=== PATIENT | female | born 1965 | race Two or more races ===

== ENCOUNTER 2019-06-27 07:46 | Emergency (ER) | payer SELFPAY ==
[2019-06-27 07:53] VITALS: BMI 31.9
[2019-06-27] MEDS ORDERED: MECLIZINE HCL 25 MG TABLET (FP) PO ONE (08:21)
[2019-06-27] MEDS ORDERED: MECLIZINE HCL 25 MG TABLET (FP) ONE (08:47)
[2019-06-27 09:08] LABS: URINE APPEARANCE CLEAR; URINE BILIRUBIN NEGATIVE (NEGATIVE); URINE COLOR YELLOW; URINE GLUCOSE (UA) NEGATIVE (NEGATIVE); URINE KETONE NEGATIVE (NEGATIVE); URINE LEUK ESTERASE NEGATIVE (NEGATIVE); URINE NITRITE NEGATIVE (NEGATIVE); URINE PROTEIN NEGATIVE (NEGATIVE); URINE UROBILINOGEN 0.2 mg/dL (0.2-1.0)
[2019-06-27 09:10] LABS: BASO % 0.8 % (0-2.0); EOS % 2.9 % (0-4.5); HEMOGLOBIN 14.6 GM/dL (10.7-15.3); LYMPH % 32.1 % (8-40); MCH 30.4 pg (25.7-33.7); MCHC 33.2 g/dl (32.0-36.0); MEAN CELL VOLUME 91.4 fl (80-96); MEAN PLT VOLUME 8.7 fl (7.5-11.1); MONO % 5.6 % (3.8-10.2); NEUT % 58.6 % (42.8-82.8); PLATELET COUNT 175 K/MM3 (134-434); RBC 4.82 M/mm3 (3.60-5.2); WHITE BLOOD COUNT 6.7 K/mm3 (4.0-10.0)
[2019-06-27 09:44] LABS: ALBUMIN 4.1 g/dl (3.4-5.0); ALK PHOS 97 U/L (45-117); ANION GAP 6 MMOL/L (8-16); BILIRUBIN,TOTAL 0.3 mg/dL (0.2-1); BLOOD UREA NITROGEN 10.6 mg/dL (7-18); CALCIUM 8.9 mg/dL (8.5-10.1); CHLORIDE 110 mmol/L (98-107); CO2 25 mmol/L (21-32); CREATININE 0.7 mg/dL (0.55-1.3); GLUCOSE,RANDOM 112 mg/dL (74-106); POTASSIUM 4.1 mmol/L (3.5-5.1); SGOT/AST 67 U/L (15-37); SGPT/ALT 121 U/L (13-61); SODIUM 141 mmol/L (136-145); TOT PROT 8.1 g/dl (6.4-8.2)
--- NOTE | 2019-06-27 09:53 | PDOC ---
History of Present Illness - General Chief Complaint: Lightheaded Stated Complaint: DIZZINESS Time Seen by Provider: 06/27/19 08:13 History Source: Patient Exam Limitations: No Limitations - History of Present Illness Initial Comments: 06/27/19 09:48 54-year-old female presents to ED with dizziness upon awakening this morning. Patient states felt as if the room was spinning without headache, visual changes , chest pain, shortness of breath, fever or chills. Patient states has not experienced this in the past and was brought in by her daughter for evaluation. Patient states symptoms are minimal while resting but when she goes to get up , she feels as if she has to hold onto something. Presenting Symptoms: Dizziness Timing/Duration: reports: intermittent Severity/Quality: reports: mild, moderate Associated Symptoms: Yes: Dizziness Past History - Travel Traveled outside of the country in the last 30 days: No Close contact w/someone who was outside of country & ill: No - Past Medical History Allergies/Adverse Reactions: Allergies Allergy/AdvReac Type Severity Reaction Status Date / Time No Known Allergies Allergy Verified 06/27/19 07:53 Home Medications: Ambulatory Orders Meclizine HCl [Antivert -] 25 mg PO TID PRN #21 tablet 06/27/19 COPD: No Disorders: No Kidney Stones: No - Surgical History Gastric Stapling: No - Immunization History Immunization Up to Date: No - Psycho Social/Smoking Cessation Hx Smoking History: Never smoked Have you smoked in the past 12 months: No Information on smoking cessation initiated: No Hx Alcohol Use: No Drug/Substance Use Hx: No Patient Lives Alone: No Lives with/in: spouse/SO Review of Systems - Review of Systems Able to Perform ROS?: Yes Constitutional: No: Symptoms Reported Respiratory: No: Symptoms reported Cardiac (ROS): Yes: Lightheadedness ABD/GI: No: Symptoms Reported Musculoskeletal: No: Symptoms Reported Integumentary: No: Symptoms Reported Neurological: Yes: Dizziness *Physical Exam - Vital Signs Last Vital Signs Temp Pulse Resp BP Pulse Ox 98.3 F 89 16 130/56 L 99 06/27/19 07:49 06/27/19 07:49 06/27/19 07:49 06/27/19 07:49 06/27/19 07:49 - Physical Exam General Appearance: Yes: Nourished, Appropriately Dressed. No: Apparent Distress HEENT: positive: EOMI, FINESSE. negative: Pale Conjunctivae Neck: positive: Normal Thyroid, Supple Respiratory/Chest: positive: Lungs Clear, Normal Breath Sounds. negative: Respiratory Distress, Accessory Muscle Use Cardiovascular: positive: Regular Rhythm, Regular Rate. negative: Murmur Gastrointestinal/Abdominal: positive: Soft. negative: Tenderness Extremity: positive: Normal Inspection. negative: Pedal Edema Integumentary: positive: Normal Color, Warm, Moist Neurologic: positive: Motor Strength 5/5 (ambulatory), Other (Negative Hallpike' s but noted subjective complaints of dizziness when going from supine to sitting position and then sitting to standing position) Heart Score/ECG Review - ECG Intrepretation Rhythm: Regular Rhythm (Rate 80. Normal sinus rhythm. Possible left atrial enlargement. Intervals are regular no ST elevation or depression.) ED Treatment Course - LABORATORY CBC & Chemistry Diagram: 06/27/19 08:50 06/27/19 08:50 - ADDITIONAL ORDERS Additional order review: Laboratory Results 06/27/19 06/27/19 08:50 08:45 Sodium 141 Potassium 4.1 Chloride 110 H Carbon Dioxide 25 Anion Gap 6 L BUN 10.6 Creatinine 0.7 Est GFR (CKD-EPI)AfAm 113.84 Est GFR (CKD-EPI)NonAf 98.23 Random Glucose 112 H Calcium 8.9 Total Bilirubin 0.3 AST 67 H ALT 121 H Alkaline Phosphatase 97 Creatine Kinase 132 Troponin I < 0.02 Total Protein 8.1 Albumin 4.1 Urine Color Yellow Urine Appearance Clear Urine pH 5.0 Ur Specific [place] 1.005 L Urine Protein Negative Urine Glucose (UA) Negative Urine Ketones Negative Urine Blood Negative Urine Nitrite Negative Urine Bilirubin Negative Urine Urobilinogen 0.2 Ur Leukocyte Esterase Negative 06/27/19 08:50 RBC 4.82 MCV 91.4 MCHC 33.2 RDW 14.0 MPV 8.7 Neutrophils % 58.6 Lymphocytes % 32.1 Monocytes % 5.6 Eosinophils % 2.9 Basophils % 0.8 - RADIOLOGY Radiology Studies Ordered: Category Date Time Status HEAD CT WITHOUT CONTRAST [CT] Stat CT Scan 06/27/19 08:19 Ordered CHEST X-RAY PORTABLE* [RAD] Stat Radiology 06/27/19 08:21 Ordered - Medications Given in the ED: ED Medications Discontinued Medications Generic Name Dose Route Start Last Admin Trade Name Freq PRN Reason Stop Dose Admin Meclizine HCl 25 mg 06/27/19 08:21 06/27/19 08:51 Antivert - PO 06/27/19 08:22 25 mg ONCE ONE Administration Medical Decision Making - Medical Decision Making 06/27/19 08:51 Chief complaint: Dizziness upon awakening this morning worsened with movement. Patient denies any other associated symptoms including nausea, visual changes or headache. Patient denies symptoms previously in the past. Exam: Vital signs stable. No neurofocal deficits. Noted dizziness with supine to sitting, sitting to standing. Plan: Labs, EKG, urine and head CT. Patient also to receive meclizine. 06/27/19 09:53 Laboratory Tests 06/27/19 06/27/19 06/27/19 08:45 08:50 08:50 WBC 6.7 Hgb 14.6 Hct 44.0 Absolute Neuts (auto) 3.9 Sodium 141 Potassium 4.1 Chloride 110 H Carbon Dioxide 25 Anion Gap 6 L BUN 10.6 Creatinine 0.7 Random Glucose 112 H Calcium 8.9 Total Bilirubin 0.3 AST 67 H ALT 121 H Alkaline Phosphatase 97 Creatine Kinase 132 Troponin I < 0.02 Total Protein 8.1 Albumin 4.1 Ur Specific [place] 1.005 L Urine Ketones Negative Urine Bilirubin Negative Ur Leukocyte Esterase Negative Patient states feeling much better after receiving meclizine. Will discharge patient home with the same along with neurology follow-up repeat vital stable. Discharge - Discharge Information Problems reviewed: Yes Clinical Impression/Diagnosis: Vertigo Condition: Improved Disposition: HOME - Additional Discharge Information Prescriptions: Meclizine HCl [Antivert -] 25 mg PO TID PRN #21 tablet PRN Reason: Vertigo - Follow up/Referral Referrals: Kong Ny MD [Staff Physician] - - Patient Discharge Instructions Patient Printed Discharge Instructions: DI for Benign Paroxysmal Positional Vertigo Additional Instructions: Drink plenty of fluids. Get up from bed in increments. Take meclizine as needed for dizziness. Follow-up with neurologist. - Post Discharge Activity
[2019-06-27 09:57] VITALS: BP 142/85; PULSE 83; TEMP 98.7
--- NOTE | 2019-06-27 10:00 | EKG ---
Test Reason : Blood Pressure : / mmHG Vent. Rate : 080 BPM Atrial Rate : 080 BPM P-R Int : 148 ms QRS Dur : 080 ms QT Int : 388 ms P-R-T Axes : 049 -11 055 degrees QTc Int : 447 ms NORMAL SINUS RHYTHM POSSIBLE LEFT ATRIAL ENLARGEMENT NONSPECIFIC T WAVE ABNORMALITY ABNORMAL ECG NO PREVIOUS ECGS AVAILABLE Confirmed by SARAH BETH BUSTILLO, MITCHEL ([id number]) on 06/27/2019 9:59:56 AM Referred By: Confirmed By:MITCHEL BURLESON MD
== END 2019-06-27 10:00 | disposition home or self-care (01) ==
LOC: JER 07:46
DX: R42 Dizziness and giddiness (principal)
CPT/HCPCS: 36415; 70450-TC; 71045-TC-FY; 80053; 81003; 82550; 84484; 85025; 93005; 93010; 99282-25